=== PATIENT | female | born 1940 | race Caucasian/White ===

== ENCOUNTER 2025-05-28 13:05 | Emergency (ER) | payer OTHER, SELFPAY ==
[2025-05-28 13:05] VITALS: BP 139/74; BMI 26.5
[2025-05-28 13:07] VITALS: BP 139/74
[2025-05-28 13:19] LABS: Hematocrit 43.2 % (37.0-47.0); Hemoglobin 14.2 g/dL (12.0-16.0); Mean Corp Hgb Conc. 32.9 g/dL (33.0-37.0); Mean Corpuscular Volume 100.7 fL (81.0-99.0); Nucleated Red Blood Cells % 0 %; Platelet Count 214 10^3/uL (130-400); Red Cell Dist. Width 13.2 % (11.5-14.5)
--- NOTE | 2025-05-28 13:24 | ED.GENMED ---
History of Present Illness
General
Chief Complaint: Fainting/Passed Out
Time Seen by Provider: 05/28/25 13:24
History of Present Illness
History of Present Illness:
PAST MEDICAL HISTORY AND REVIEW OF OLD RECORDS
- The patient has history of Parkinson's, high blood pressure. She was seen here 3 years ago after a fall and was found to have a subdural hematoma. At that time, the patient was transferred to [place].
Note:
CHIEF COMPLAINT(S)
Syncope
HISTORY OF PRESENT ILLNESS
The patient is an 84-year-old female with a history of Parkinsons disease, presenting with an episode of syncope. The event occurred at home in [place] shortly after completing breakfast at approximately 11:30 a.m. According to her spouse, the
patient appeared to slump and become unresponsive with eyes open but did not fall. Her blood pressure was measured at home and noted to be within a normal range, although typically she experiences low blood pressure, reported to be around 85 in the
mornings. After EMS arrived, the patient regained responsiveness before transport.
This episode redd the third consecutive Monday that such an incident has occurred, noteworthy coinciding with a recent change in her schedule related to visits from a hairdresser and a recent switch in medication from gabapentin to pregabalin
two weeks prior. Pregabalin was prescribed for restless legs, a condition that her Parkinsons doctor relates to low iron levels. The patient also reports frequent urination at night, potentially linked to her Parkinsons disease.
REVIEW OF SYSTEMS
- Cardiovascular: History of low blood pressure, transient episode involving a heart rate of 130 beats per minute with irregular rhythm noted in the past.
- Neurological: Parkinsons disease for 11 years, with recent medication change from gabapentin to pregabalin for restless leg syndrome.
- Genitourinary: Reports of frequent urination during the night.
- Gastrointestinal: Reports of the digestive process potentially affecting energy levels after meals.
PHYSICAL EXAM
General: Alert, no acute distress.
Skin: Warm, dry.
Head: Normocephalic, atraumatic.
Neck: Supple, trachea midline.
Eyes, Ears, Nose, Mouth, and Throat: Oral mucosa moist.
Cardiovascular: Normal peripheral perfusion, no edema. No murmurs, normal rhythm and rate.
Respiratory: Respirations are non-labored. Lungs clear.
Gastrointestinal: Abdomen non-distended.
Musculoskeletal: Decreased range of motion in all extremities equally related to history of Parkinson's
Neurological: Flat affect/masked facies, bradykinesia noted with no focal findings
Psychiatric: Cooperative, appropriate mood & affect.
CHRONIC MEDICAL CONDITIONS SIGNIFICANTLY AFFECTING CARE
- Parkinson's disease
SOCIAL DETERMINANTS AFFECTING HEALTH
None reported. Lives at home
MEDICATIONS
- Sinemet for Parkinsons disease, taken six times a day.
- Recently switched from gabapentin to pregabalin for restless leg syndrome.
PLAN
- Monitor heart rate and rhythm, currently normal; continue monitoring for potential arrhythmias.
- Review blood work upon completion to assess any abnormalities contributing to symptoms.
- Consider the addition of iron studies to assess for deficiency contributing to restless legs.
- Discuss continued follow-up care, including visit schedule alteration to adjust for fatigue, particularly noting changes around hairdresser visits.
- Reinforce plans to follow up with her neurologist for management of Parkinsons disease and possible contributions to syncope episodes.
DIFFERENTIAL DIAGNOSIS
The Differential Diagnosis includes, in no particular order and is not limited to:
1. Orthostatic hypotension
2. Cardiac arrhythmia (possible atrial fibrillation)
3. Parkinsons disease-related autonomic dysfunction
4. Medication side effects (pregabalin, sinemet)
5. Vasovagal syncope
6. Anemia or iron deficiency
7. Dehydration
8. Postprandial hypotension
9. Neurodegenerative disease progression
10. Electrolyte imbalances
RADIOLOGY
- No clear indication for imaging at this time
EKG
- Sinus 72, left axis deviation, nonspecific ST abnormality, first-degree AV block
LABS
- CBC unremarkable however the MCV is 100.7, chemistries unremarkable
UPDATE
- After my initial evaluation, the patient tells me that she feels back to her normal self. She is slightly hypertensive with normal rate and rhythm.
- Reassessment at 3:10 PM, the patient feels well and has no further symptoms. I rechecked her heart rate and rhythm and they are both normal. She is eager to go home.
SUMMARY OF ENCOUNTER
The patient, an 84-year-old female with a history of Parkinsons disease, presented to the emergency department following an episode of syncope at home. This episode marked the third consecutive occurrence on a Monday, aligning with recent
schedule changes and a switch in medication from gabapentin to pregabalin. The patient has known low blood pressure with a normal reading noted at the time of the episode. Blood work, including iron levels, returned unremarkable, with no clear
etiology identified for the syncope. Her cardiac rhythm was monitored and found to be normal during the visit, consistent with the patient�s history of using pacemaker data. She reports having been previously evaluated by her heart doctor and found
to have had atrial fibrillation due to a lung infection but is no longer on anticoagulation therapy per her manager of case.
PLAN
The plan includes close monitoring of heart rhythm and symptoms at home, considering a potential revisit to the manager of case if symptoms persist. No immediate changes in medication were pursued given the normal rhythm observed during monitoring.
Patient was advised on the potential utility of personal monitoring devices but was not instructed to purchase them. She was reassured about the normal findings and advised on safe discharge.
INDEPENDENT REVIEW OF LABS AND INTERPRETATION OF TESTS
My independent review indicates that the patients blood work, including iron levels, was unremarkable.
PATIENT EDUCATION AND COUNSELING
The patient was educated on the importance of monitoring symptoms and reporting any exacerbation or new occurrences of syncope. She was informed about the findings and the decision to manage the condition conservatively at this time.
FOLLOW-UP INSTRUCTIONS
Patient to follow up with her neurologist for continued management of Parkinsons disease and with manager of case Dr. Arrington if recurrent syncope episodes occur.
MEDICATION RECONCILIATION
No changes to current medication regimen observed during emergency visit.
MEDICAL DECISION MAKING
-Complexity of Data Reviewed:
Chronic conditions affecting care: Parkinsons disease.
Differential diagnosis included orthostatic hypotension, cardiac arrhythmia, Parkinson�s disease-related autonomic dysfunction, medication side effects, vasovagal syncope, anemia or iron deficiency, dehydration, postprandial hypotension,
neurodegenerative disease progression, and electrolyte imbalances.
-Data:
Category 1
My independent review of the patients outpatient records indicates a history of Parkinsons medication change from gabapentin to pregabalin.
Category 2
Clinical information was obtained from an independent historian, indicated by the patient�s description and her spouses account of episodes.
-Risk:
Consideration of Admission/Observation: Escalation of care including admission/observation was considered given the complexity and risk of the patients presenting complaint, exam findings, and/or their underlying comorbidities. However, ultimately I
feel the patient is safe for outpatient management with close follow-up. Reasoning: Work-up reassuring, does not reveal any acute life/organ-threatening processes, patients symptoms well controlled upon reevaluation, reexamination is reassuring,
vitals are stable, patient agreeable with discharge, reliable for follow-up.
DIAGNOSIS
Syncope, unspecified (ICD-10: R55)
Parkinsons disease (ICD-10: G20)
Past History
Past History
ED Past Medical History: Arrthythmia (SVT), CVA (Stroke 1999 R thalamic lacune), HTN, Hypercholesterolemia, Other (Parkinson's disease, lumbar DJD, chronic low back pain, orthostasis, syncope) and Other (REM sleep behavior disorder); Negative
Seizures
ED Past Surgical History: Orthopedic (Left arm surgery)
Social History
Tobacco: Non-smoker
Alcohol: Occasional
Drug: None
Personal:
Living: with family
Employment: Employed
Family History
Family History: Other (Reviewed and Noncontributory)
Phy Exam
Physical Exam
Physical Exam:
See HPI
Course
Orders/Labs/Results
Orders:
Orders
05/28/25 13:07
EKG [Electrocardiogram (*1)] Urgent
Reason for Study: Vertigo / Dizzy
05/28/25 13:08
EKG- Treatment ONCE
05/28/25 13:13
Complete Blood Count/With Diff Urgent
Comprehensive Metabolic Panel Urgent
Ferritin Urgent
Comment: IRON,TIBC,FERRITIN ADDED ONBY FLOOR 1:30PM 05-28-25
Iron Urgent
Total Iron Binding Urgent
Troponin I Urgent
05/28/25 13:34
Add On- LAB Urgent
Tests Added?: iron, TIBC, ferritin
Abnormal Lab Results
05/28/25
13:13
MCV 100.7 H fL
(81.0-99.0)
MCH 33.1 H pg
(27.0-31.0)
MCHC 32.9 L g/dL
(33.0-37.0)
Absolute Lymphs (auto) 1.0 L 10^3/uL
(1.2-3.4)
Lymphocytes % 14.6 L %
(20.5-51.1)
Chloride 109 H mmol/L
(98-107)
BUN 21 H mg/dl
(7-17)
Glucose 138 H mg/dl
(70-99)
Total Protein 6.2 L g/dl
(6.3-8.2)
05/28/25 13:13
05/28/25 13:13
Vital Signs
Initial and Last Documented VS:
Initial Vital Signs
Temp Pulse Resp BP Pulse Ox
36.4 C 75 20 139/74 95
05/28/25 13:05 05/28/25 13:05 05/28/25 13:05 05/28/25 13:05 05/28/25 13:05
Last Documented Vital Signs
Temp Pulse Resp BP Pulse Ox
36.4 C 72 16 150/83 96
05/28/25 13:05 05/28/25 14:08 05/28/25 14:08 05/28/25 14:08 05/28/25 14:08
*Pulse Oximetry
SaO2: 94
Patient hypoxic: no
*Critical Care Note
Total Time (30-74mins, 75-104mins- exclusive of procedures): Not Applicable
ED Attending Note
-
Portions of this chart may have been created with voice recognition software.� Occasional wrong word or��sound alike� substitutions may have occurred due to the inherent limitations of voice recognition software.
Discharge Plan
Departure
Prescriptions:
No Action
multivitamin [Multi-Day] 1 EACH tablet
1 ea PO DAILY
atorvastatin 40 MG tablet
40 mg PO HS
spironolactone 25 MG tablet
12.5 mg PO .QAM, DINNER
Patient Comments:
Rx Instructions:
does not take if SBP below 100
aspirin 81 MG tablet,delayed release (DR/EC)
81 mg PO DAILY 0RF
acetaminophen [Tylenol Extra Strength] 500 MG tablet
1,000 mg PO TID 0RF
PreserVision AREDS-2 250-90-40-1 mg Capsule
1 cap PO .QAM,DINNER
carbidopa-levodopa 50-200 mg Tablet Extended Release
1 tab PO Q4H
pregabalin 75 mg Capsule
75 mg PO HS
Referrals:
Dane Gregory CRNP [Family Provider, General]
Interventions
Interventions:
*Risk Screen - Suicide Last Done: 05/28/25 13:05
*General Assessment Last Done: 05/28/25 13:05
*Neglect/Abuse Screening Last Done: 05/28/25 13:05
*ED- Fall Risk Assessment Last Done: 05/28/25 13:05
*ED COVID-19 Vaccine History Last Done: 05/28/25 13:05
ED- Cardiac Assessment Last Done: 05/28/25 13:05
ED- Neurological Assessment Last Done: 05/28/25 13:05
Discharge Date and Time
Print Language: MOHAWK
[2025-05-28 13:33] LABS: ALT (SGPT) < 10 U/L (0-35); AST (SGOT) 20 U/L (14-36); Albumin 3.9 g/dl (3.5-5.0); Alkaline Phosphatase 66 U/L (38-126); Blood Urea Nitrogen 21 mg/dl (7-17); Calcium 9.1 mg/dl (8.4-10.2); Carbon Dioxide 26 mmol/L (22-30); Chloride 109 mmol/L (98-107); Glucose 138 mg/dl (70-99); Potassium 3.8 mmol/L (3.5-5.1); Sodium 140 mmol/L (135-145); Total Protein 6.2 g/dl (6.3-8.2); eGFR > 60.00
[2025-05-28 13:43] LABS: Troponin I < 0.012 ng/ml
[2025-05-28 14:00] VITALS: BP 150/83
[2025-05-28 14:08] VITALS: BP 150/83
[2025-05-28 14:40] LABS: Iron 100 ug/dl (37-170)
[2025-05-28 14:49] LABS: Total Iron Binding Capacity 277 ug/dl (265-497)
[2025-05-28 15:17] LABS: Ferritin 20.0 ng/ml (11.1-264.0)
== END 2025-05-28 15:39 | disposition home or self-care (01) ==
LOC: EMR 13:05
PROVIDERS: Emergency Medicine; EMERGENCY PHYSICIAN Emergency Medicine; FAMILY PHYSICIAN Nurse Practitioner Gerontology
DX: R55 Syncope and collapse (principal); I44.0 Atrioventricular block, first degree; I10 Essential (primary) hypertension; E78.00 Pure hypercholesterolemia, unspecified; G20.A1 Parkinson's disease without dyskinesia, without mention of fluctuations; G25.81 Restless legs syndrome; M47.816 Spondylosis without myelopathy or radiculopathy, lumbar region; Z86.73 Personal history of transient ischemic attack (TIA), and cerebral infarction without residual deficits; Z79.82 Long term (current) use of aspirin
CPT/HCPCS: 99284; 80053; 82728; 83540; 83550; 84484; 85025; 93005

== ENCOUNTER 2025-06-11 21:08 | Emergency (ER) | payer OTHER, SELFPAY ==
[2025-06-11 21:15] VITALS: BP 153/96
[2025-06-11 21:35] LABS: Hematocrit 46.3 % (37.0-47.0); Hemoglobin 15.7 g/dL (12.0-16.0); Mean Corp Hgb Conc. 33.9 g/dL (33.0-37.0); Mean Corpuscular Volume 98.3 fL (81.0-99.0); Nucleated Red Blood Cells % 0 %; Platelet Count 288 10^3/uL (130-400); Red Cell Dist. Width 12.9 % (11.5-14.5)
[2025-06-11 21:51] LABS: ALT (SGPT) < 10 U/L (0-35); AST (SGOT) 25 U/L (14-36); Albumin 4.7 g/dl (3.5-5.0); Alkaline Phosphatase 89 U/L (38-126); Blood Urea Nitrogen 29 mg/dl (7-17); Calcium 9.4 mg/dl (8.4-10.2); Carbon Dioxide 27 mmol/L (22-30); Chloride 105 mmol/L (98-107); Glucose 126 mg/dl (70-99); Lipase 432 U/L (23-300); Potassium 4.5 mmol/L (3.5-5.1); Sodium 139 mmol/L (135-145); Total Protein 7.1 g/dl (6.3-8.2); eGFR > 60.00
[2025-06-12 02:42] VITALS: BP 169/93
--- NOTE | 2025-06-12 02:53 | ED.GENMED ---
History of Present Illness
General
Chief Complaint: Bowel Problem
Source: patient and spouse
Exam Limitations: dementia
Time Seen by Provider: 06/12/25 00:14
Nursing documentation reviewed up to this point in time: agreed with
History of Present Illness
History of Present Illness:
84-year-old female past medical history of Parkinson's previous stroke presenting to the emergency department today with concerns of constipation over the past 7 days does of a history of small bowel obstruction as well. Some mild discomfort to the
abdomen.
Past History
Past History
ED Past Medical History: Arrthythmia (SVT), CVA (Stroke 1999 R thalamic lacune), HTN, Hypercholesterolemia, Other (Parkinson's disease, lumbar DJD, chronic low back pain, orthostasis, syncope) and Other (REM sleep behavior disorder); Negative
Seizures
ED Past Surgical History: Orthopedic (Left arm surgery)
Social History
Tobacco: Non-smoker
Alcohol: Occasional
Drug: None
Personal:
Living: with family
Employment: Employed
Family History
Family History: Other (Reviewed and Noncontributory)
Review of Systems
Review of Systems
Allergies reviewed?: Yes
All Other Systems: ROS reviewed and negative except as documented in HPI and ROS
Phy Exam
Physical Exam
Physical Exam:
GENERAL: Alert , in no apparent distress
EYE: pupils equal and reactive
NECK: Supple, no significant adenopathy.
ENT: o/p clr, mmm.
CARDIAC: Regular rate and rhythm .
LUNGS: Clear breath sounds bilaterally, no acute respiratory distress, no wheezes/rales/rhonchi
ABDOMEN: Soft, without focal tenderness, no r/g, no cvat
NEUROLOGICAL: Alert and oriented, no focal neuro deficits
SKIN: Warm and dry, skin intact.
MUSCULOSKELETAL: No edema, well perfused.
PSYCH: Normal and appropriate interaction.
Course
Orders/Labs/Results
Orders:
Orders
06/11/25 21:18
Obstruct Series W/PA Chest [CR Obstruct Series W/pa Chest] Urgent
Comment:
Reason For Exam: constipation
06/11/25 21:26
Comprehensive Metabolic Panel Urgent
Lipase Urgent
06/11/25 21:27
Complete Blood Count/With Diff Urgent
06/12/25 01:40
CT Abd/Pel (IV only)-DH only Urgent
Comment:
Reason For Exam: no BM
Abnormal Lab Results
06/11/25 06/11/25
21:26 21:27
WBC 12.2 H 10^3/uL
(4.8-10.8)
MCH 33.3 H pg
(27.0-31.0)
Absolute Neuts (auto) 9.6 H 10^3/uL
(1.4-6.5)
Absolute Monos (auto) 0.9 H 10^3/uL
(0.1-0.6)
Neutrophils % 78.9 H %
(42.2-75.2)
Lymphocytes % 12.9 L %
(20.5-51.1)
BUN 29 H mg/dl
(7-17)
Glucose 126 H mg/dl
(70-99)
Lipase 432 H U/L
(23-300)
06/11/25 21:27
06/11/25 21:26
Vital Signs
Initial and Last Documented VS:
Initial Vital Signs
Temp Pulse Resp BP Pulse Ox
98.2 F 94 16 153/96 96
06/11/25 21:15 06/11/25 21:15 06/11/25 21:15 06/11/25 21:15 06/11/25 21:15
Last Documented Vital Signs
Temp Pulse Resp BP Pulse Ox
98.2 F 71 20 133/80 98
06/11/25 21:15 06/12/25 04:26 06/12/25 04:26 06/12/25 04:26 06/12/25 04:26
MDM/Problems Addressed
MDM/Problems Addressed:
84-year-old female presenting to the emerged from today with concerns of movements over the past 7 days. Here labs unremarkable other than potential slight dehydration with elevated BUN to creatinine ratio. Otherwise CT scan did not show any
emergent finding small bowel obstruction or fecal impaction but did show constipation. Patient vies to use increasing MiraLAX otherwise advised for primary care follow-up. Return precautions given.
*Pulse Oximetry
SaO2: 95
Oxygen Mode of Delivery: Room air
Patient hypoxic: no (98)
*Critical Care Note
Total Time (30-74mins, 75-104mins- exclusive of procedures): Not Applicable
ED Attending Note
-
Portions of this chart may have been created with voice recognition software.� Occasional wrong word or��sound alike� substitutions may have occurred due to the inherent limitations of voice recognition software.
Discharge Plan
Departure
Patient Disposition: Home (Routine Discharge)
Date of Disposition: 06/12/25
Time of Disposition: 04:54
Patient with high blood pressure during this ER visit?: No
Condition: Good
Covid-19: Not Applicable
Discharge Problem:
Constipation
Instructions: Constipation, Adult (DC)
Prescriptions:
No Action
multivitamin [Multi-Day] 1 EACH tablet
1 ea PO DAILY
atorvastatin 40 MG tablet
40 mg PO HS
spironolactone 25 MG tablet
12.5 mg PO .QAM, DINNER
Patient Comments:
Rx Instructions:
does not take if SBP below 100
aspirin 81 MG tablet,delayed release (DR/EC)
81 mg PO DAILY 0RF
PreserVision AREDS-2 250-90-40-1 mg Capsule
1 cap PO .QAM,DINNER
carbidopa-levodopa 50-200 mg Tablet Extended Release
1 tab PO Q4H
mirabegron [Myrbetriq] 25 mg Tablet Extended Release 24 Hr
25 mg PO DAILY
Stool Softener
1 tab PO DAILY
Referrals:
Dane Gregory CRNP [Family Provider, General]
Activity Restrictions/Additional Instructions:
You came to the emergency department today with concerns of changes in bowel movements. Here your reassuring assessment. You likely have constipation. Please increase your MiraLAX dosing and follow-up closely with the primary care doctor. Return
for any worsening, new or concerning symptoms.
Interventions
Interventions:
*Risk Screen - Suicide Last Done: 06/11/25 21:15
*General Assessment Last Done: 06/12/25 01:00
*Neglect/Abuse Screening Last Done: 06/11/25 21:15
*ED- Fall Risk Assessment Last Done: 06/11/25 21:15
QK-Zufxip-Fnhbvesrzp Assessment Last Done: 06/12/25 01:00
Discharge Date and Time
Print Language: [place]
[2025-06-12 04:26] VITALS: BP 133/80
[2025-06-12 05:17] VITALS: BP 115/66
== END 2025-06-12 05:18 | disposition home or self-care (01) ==
LOC: EMR 21:08
PROVIDERS: Emergency Medicine; EMERGENCY PHYSICIAN Emergency Medicine; FAMILY PHYSICIAN Nurse Practitioner Gerontology
DX: K59.00 Constipation, unspecified (principal); E86.0 Dehydration; F03.90 Unspecified dementia, unspecified severity, without behavioral disturbance, psychotic disturbance, mood disturbance, and anxiety; I10 Essential (primary) hypertension; E78.00 Pure hypercholesterolemia, unspecified; G20.A1 Parkinson's disease without dyskinesia, without mention of fluctuations; G47.52 REM sleep behavior disorder; M47.816 Spondylosis without myelopathy or radiculopathy, lumbar region; Z79.82 Long term (current) use of aspirin; Z86.73 Personal history of transient ischemic attack (TIA), and cerebral infarction without residual deficits
CPT/HCPCS: 99284; 74022; 74177; 80053; 83690; 85025; Q9967

== ENCOUNTER → 2025-09-17 16:17 | Outpatient (REF) | payer OTHER, SELFPAY | LOC: RAD 16:17 | PROVIDERS: ATTENDING PHYSICIAN Nurse Practitioner Gerontology; FAMILY PHYSICIAN Nurse Practitioner Gerontology | DX: K59.00 Constipation, unspecified (principal); M54.50 Low back pain, unspecified; M25.552 Pain in left hip | CPT/HCPCS: 72100; 73502; 74019 ==

== ENCOUNTER 2025-09-19 09:29 | Emergency (ER) | payer OTHER, SELFPAY ==
[2025-09-19 09:32] VITALS: BP 113/68
--- NOTE | 2025-09-19 10:19 | ED.GENMED ---
History of Present Illness
General
Chief Complaint: Musculo-Skeletal Complaint
Source: patient
Exam Limitations: none
Time Seen by Provider: 09/19/25 10:12
Nursing documentation reviewed up to this point in time: agreed with
History of Present Illness
History of Present Illness:
85-year-old female with history of Parkinson's, falls, TIA, laminectomy L3-L5 2018, HTN, HLD hernia repair, recent fall with L1 vertebral mild endplate fx, presents for back pain, feeling constipated.
history of a fall in her kitchen 09/07, when she lost balance, not using her walker, when her aide went to the bathroom, she decided to try to walk to get some candy,, according to . This fall lead to back pain, went to PCP at [facility],
their xray machine wasn't working, went to 2 days ago, had LS spine xray and according to , unclear if fx seen. Came here 2 days ago as out patient and xrays showed L-1 mild end plate fx. She also had abdominal film which showed large
amount of stool throughout the colon. She has had increasing mid to low back pain as well as pain in the abdomen, she did finally have a 'large' BM yesterday and drinking prune juice.
Family also states her ankles were swollen 8 days ago, then went down, then noted swelling again, swelling seems to be fluctuating bilaterally. Pt denies SOB, CP. Denies fever. Denies n/v. Denies urinary issues.
Past History
Past History
ED Past Medical History: Arrthythmia (SVT), CVA (Stroke 1998 R thalamic lacune), HTN, Hypercholesterolemia, Other (Parkinson's disease, lumbar DJD, chronic low back pain, orthostasis, syncope) and Other (REM sleep behavior disorder); Negative
Seizures
ED Past Surgical History: Orthopedic (Left arm surgery)
Social History
Tobacco: Non-smoker
Alcohol: Occasional
Drug: None
Personal:
Living: with family
Employment: Employed
Family History
Family History: Other (Reviewed and Noncontributory)
Review of Systems
Review of Systems
Allergies reviewed?: Yes
All Other Systems: ROS reviewed and negative except as documented in HPI and ROS
Phy Exam
Physical Exam
Physical Exam:
GENERAL: No acute distress. A&Ox3.
CONSTITUTIONAL: Afebrile.
EYES: clear, conjunctivae normal
ENMT: moist mucus membranes, Pharynx nl
RESPIRATORY: Regular respirations, nonlabored, lungs clear.
CARDIOVASCULAR: Regular rate and rhythm, no murmurs, no rubs.
GI: Soft, nontender, normal BS
MUSCULOSKELETAL: Tender to palpate lower thoracic, upper lumbar spine. Rest of spine is nontender. Laying flat, denies pain. Able to bend knees comfortably. Passive SLR elicits no pain. Turning elicits pain. Mild swelling left ankle, minimal
swelling right ankle. Pedal pulses 2/5, feet warm, brisk capillary refill. Well perfused.
SKIN: Warm, dry, pink
PSYCH: Normal mood and affect. Well kept, interactive and appropriate
NEUROLOGIC: Awake, alert and oriented. Speaks slowly, responds slowly due to Parkinson's. Appropriately converses. Generalized weakness.
Course
Orders/Labs/Results
Orders:
Orders
09/19/25 11:04
Complete Blood Count/With Diff Urgent
Comprehensive Metabolic Panel Urgent
09/19/25 11:12
Magnesium Citrate [Citroma] 300 ml PO ONCE ONE
Abnormal Lab Results
09/19/25
11:04
RBC 4.12 L 10^6/uL
(4.20-5.40)
MCV 100.2 H fL
(81.0-99.0)
MCH 34.0 H pg
(27.0-31.0)
Absolute Lymphs (auto) 0.9 L 10^3/uL
(1.2-3.4)
Absolute Monos (auto) 0.7 H 10^3/uL
(0.1-0.6)
Lymphocytes % 12.9 L %
(20.5-51.1)
Monocytes % 10.9 H %
(1.7-9.3)
BUN 22 H mg/dl
(7-17)
09/19/25 11:04
09/19/25 11:04
Vital Signs
Initial and Last Documented VS:
Initial Vital Signs
Temp Pulse Resp BP Pulse Ox
97.5 F 75 16 113/68 93
09/19/25 09:32 09/19/25 09:32 09/19/25 09:32 09/19/25 09:32 09/19/25 09:32
Last Documented Vital Signs
Temp Pulse Resp BP Pulse Ox
97.5 F 75 16 113/68 93
09/19/25 09:32 09/19/25 09:32 09/19/25 09:32 09/19/25 09:32 09/19/25 10:21
MDM/Problems Addressed
Differential Diagnosis Includes:
Low back pain: Acute compression fracture, osteoporosis/chronic pain, constipation
Constipation: Due to lack of movement, discomfort, dehydration, family state patient is 'really bad' about drinking fluids.
Ankle swelling due to to renal impairment, being sedentary
MDM/Problems Addressed:
85-year-old female with history of Parkinson's, falls, TIA, laminectomy L3-L5 2018, HTN, HLD hernia repair, recent fall with L1 vertebral mild endplate fx, presents for back pain, feeling constipated.
history of a fall in her kitchen 09/07, when she lost balance, not using her walker, when her aide went to the bathroom, she decided to try to walk to get some candy,, according to . This fall lead to back pain, went to PCP at [facility],
their xray machine wasn't working, went to 2 days ago, had LS spine xray and according to , unclear if fx seen. Came here 2 days ago as out patient and xrays showed L-1 mild end plate fx. She also had abdominal film which showed large
amount of stool throughout the colon. She has had increasing mid to low back pain as well as pain in the abdomen, she did finally have a 'large' BM yesterday and drinking prune juice.
Family also states her ankles were swollen 8 days ago, then went down, then noted swelling again, swelling seems to be fluctuating bilaterally. Pt denies SOB, CP. Denies fever. Denies n/v. Denies urinary issues.
11:45 AM:
CBC with no clinically significant abnormality
CMP normal save for a BUN of 22, patient and family instructed on increasing fluid intake
Lengthy discussion with patient, and caregiver at bedside (they have 7 days/ 10 hours a day caregivers) about not moving enough can stiffen your back and make it more painful to move, lack of movement can contribute to the ankle swelling,
not drinking enough fluids can contribute to constipation, etc. All agree she needs to move more, drink more fluids, isometric exercises discussed. Recommended P/T and will contact PCP about that. All agree, no stronger/narcotic pain meds as
she can take Tylenol and Gabapentin as ordered. Her pain is mainly going from sit to stand and vice versa, she has minimal pain at rest.
Stable for discharge
and pt very appreciative of the care and comfortable with discharge
*Pulse Oximetry
SaO2: 93
Oxygen Mode of Delivery: Room air
Patient hypoxic: no
*Critical Care Note
Total Time (30-74mins, 75-104mins- exclusive of procedures): Not Applicable
ED Attending Note
-
Portions of this chart may have been created with voice recognition software.� Occasional wrong word or��sound alike� substitutions may have occurred due to the inherent limitations of voice recognition software.
Discharge Plan
Departure
Patient Disposition: Home (Routine Discharge)
Date of Disposition: 09/19/25
Time of Disposition: 12:01
Patient with high blood pressure during this ER visit?: No
Condition: Fair
Discharge Problem:
Closed compression fracture of L1 vertebra, Constipation
Instructions: Vertebral compression fracture, Constipation in adults - ED (DC)
Prescriptions:
No Action
atorvastatin 40 MG tablet
40 mg PO HS
spironolactone 25 MG tablet
12.5 mg PO DAILY
PreserVision AREDS-2 250-90-40-1 mg Capsule
1 cap PO BID@123,2029
carbidopa-levodopa 50-200 mg Tablet Extended Release
1 tab PO Q4H
Rx Instructions:
0030, 0430, 0830, 1230, 1630, 2029
aspirin 81 mg Tablet,Delayed Release (Dr/Ec)
81 mg PO DAILY
gabapentin 100 mg Capsule
100 mg PO HS
Centrum MultiGummies 80 mcg Tablet,Chewable
1 tab PO DAILY
acetaminophen [Tylenol] 325 mg Tablet
650 mg PO Q6HPRN PRN (Reason: mild pain)
docusate sodium [Colace] 100 mg Capsule
100 mg PO DAILY@1230
Referrals:
Dane Gregory CRNP [Family Provider, General]
Activity Restrictions/Additional Instructions:
As we discussed, not moving enough can stiffen your back and make it more painful to move, lack of movement can contribute to the ankle swelling, not drinking enough fluids can contribute to constipation, etc. You need to move more, drink more
fluids, do leg and foot movement (isometric) exercises while you are resting. Contact your doctor and ge order for home P/T. Drink the bottle of magnesium citrate when you get home. Continue the Colace and increase your fluid intake.
Interventions
Interventions:
*Risk Screen - Suicide Last Done: 09/19/25 09:32
*General Assessment Last Done: 09/19/25 09:32
*Neglect/Abuse Screening Last Done: 09/19/25 09:32
*Nursing Disposition Last Done: 09/19/25 12:45
ED-Musculoskeletal Assessment Last Done: 09/19/25 11:05
Discharge Date and Time
Discharge Date/Time: 09/19/25 12:46
Print Language: HEBREW
[2025-09-19] MEDS: CITROMA 300 ML PO (11:17)
[2025-09-19 11:21] LABS: Hematocrit 41.3 % (37.0-47.0); Hemoglobin 14.0 g/dL (12.0-16.0); Mean Corp Hgb Conc. 33.9 g/dL (33.0-37.0); Mean Corpuscular Volume 100.2 fL (81.0-99.0); Nucleated Red Blood Cells % 0 %; Platelet Count 260 10^3/uL (130-400); Red Cell Dist. Width 13.5 % (11.5-14.5)
[2025-09-19 11:32] LABS: ALT (SGPT) < 10 U/L (0-35); AST (SGOT) 20 U/L (14-36); Albumin 3.9 g/dl (3.5-5.0); Alkaline Phosphatase 100 U/L (38-126); Blood Urea Nitrogen 22 mg/dl (7-17); Calcium 8.9 mg/dl (8.4-10.2); Carbon Dioxide 30 mmol/L (22-30); Chloride 104 mmol/L (98-107); Glucose 93 mg/dl (70-99); Potassium 4.0 mmol/L (3.5-5.1); Sodium 139 mmol/L (135-145); Total Protein 6.3 g/dl (6.3-8.2); eGFR > 60.00
== END 2025-09-19 12:46 | disposition home or self-care (01) ==
LOC: EMR 09:29
PROVIDERS: Registered Nurse; EMERGENCY PHYSICIAN Emergency Medicine; FAMILY PHYSICIAN Nurse Practitioner Gerontology
DX: S32.010A Wedge compression fracture of first lumbar vertebra, initial encounter for closed fracture (principal); W19.XXXA Unspecified fall, initial encounter; K59.00 Constipation, unspecified; I10 Essential (primary) hypertension; E78.00 Pure hypercholesterolemia, unspecified; G20.A1 Parkinson's disease without dyskinesia, without mention of fluctuations; M47.816 Spondylosis without myelopathy or radiculopathy, lumbar region; Z79.82 Long term (current) use of aspirin; Z86.73 Personal history of transient ischemic attack (TIA), and cerebral infarction without residual deficits
CPT/HCPCS: 99283; 80053; 85025